=== PATIENT | male | born 2000 | race Caucasian/White ===

== ENCOUNTER 2019-01-12 13:45 | Emergency (ER) | payer OTHER ==
--- NOTE | 2019-01-12 15:14 | EDM.PDOC ---
ED HPI GENERAL MEDICAL PROBLEM - General Chief Complaint: Upper Extremity Injury/Pain Stated Complaint: R SHOULDER INJURY, DURING BASKETBAL Time Seen by Provider: 01/12/19 13:59 Source of Information: Reports: Patient Right Shoulder Pain Score (Numeric/FACES): 7 Past Medical History - Past Surgical History Musculoskeletal Surgical History: Reports: Other (See Below) Other Musculoskeletal Surgeries/Procedures:: ankle surgery Social & Family History - Family History Family Medical History: Noncontributory - Tobacco Use Smoking Status *Q: Never Smoker Second Hand Smoke Exposure: No - Caffeine Use Caffeine Use: Reports: Soda - Recreational Drug Use Recreational Drug Use: No Review of Systems - Review of Systems Review Of Systems: See Below ED EXAM, GENERAL - Physical Exam Exam: See Below Course - Vital Signs Last Recorded V/S: Last Vital Signs Temp 98.0 F 01/12/19 13:56 Pulse 71 01/12/19 13:56 Resp 12 01/12/19 13:56 BP 132/65 01/12/19 13:56 Pulse Ox 99 01/12/19 13:56 - Re-Assessments/Exams Free Text/Narrative Re-Assessment/Exam: 01/13/19 09:24 Initial hx and exam was done by JESSENIA Chaney student. I have also examined patient. I agree with hx and exam as documented. X rays of shoulder are neg for fx., discharge instr. as documented. Departure - Departure Time of Disposition: 15:12 Disposition: Home, Self-Care 01 Condition: Fair Clinical Impression: Sprain of shoulder, right Qualifiers: Encounter type: initial encounter Shoulder sprain type: unspecified sprain Qualified Code(s): S43.401A - Unspecified sprain of right shoulder joint, initial encounter - Discharge Information Instructions: Shoulder Sprain Referrals: PCP,Not In Area [Primary Care Provider] - Forms: ED Department Discharge Additional Instructions: Rest right arm and shoulder, right arm sling but not for more than 5-7 days, Naprosyn 500 mg twice daily for 1 week, you may take Tylenol in addition up to 3 times daily for extra pain relief if needed. Follow-up clinic if not much better and if not getting back towards normal within 7-10 days as expected, call [phone] as needed for appointment. Return to ED as needed.
--- NOTE | 2019-01-12 15:15 | EDM.PDOC ---
<Amanda Chiang - Last Filed: 01/12/19 15:10> ED HPI GENERAL MEDICAL PROBLEM - General Chief Complaint: Upper Extremity Injury/Pain Stated Complaint: R SHOULDER INJURY, DURING BASKETBAL Time Seen by Provider: 01/12/19 13:59 Source of Information: Reports: Patient History Limitations: Reports: No Limitations - History of Present Illness INITIAL COMMENTS - FREE TEXT/NARRATIVE: Patient is a pleasant 18 year old male that presents to the ED with complaints of right shoulder pain that has been present for the past 3 days. He reports the pain started after he dunked the ball while playing basketball. He denies hitting the shoulder or any recent trauma. He describes the pain as throbbing ache with a sharp stab with movement. At rest he rates the pain as a 6/10. He states he has tried taken Tylenol and ibuprofen without much relief. Onset Date: 01/10/19 Duration: Day(s): Location: Reports: Upper Extremity, Right (Shoulder) Quality: Reports: Ache, Sharp, Throbbing Severity: Moderate Improves with: Reports: Rest Worsens with: Reports: Movement Associated Symptoms: Reports: No Other Symptoms Right Shoulder Pain Score (Numeric/FACES): 7 Past Medical History - Past Surgical History Musculoskeletal Surgical History: Reports: Other (See Below) Other Musculoskeletal Surgeries/Procedures:: ankle surgery Social & Family History - Family History Family Medical History: Noncontributory - Tobacco Use Smoking Status *Q: Never Smoker Second Hand Smoke Exposure: No - Caffeine Use Caffeine Use: Reports: Soda - Recreational Drug Use Recreational Drug Use: No Review of Systems - Review of Systems Review Of Systems: See Below Constitutional: Reports: No Symptoms Respiratory: Reports: No Symptoms Cardiovascular: Reports: No Symptoms Musculoskeletal: Reports: Shoulder Pain (Right) Skin: Reports: No Symptoms ED EXAM, GENERAL - Physical Exam Exam: See Below Exam Limited By: No Limitations General Appearance: Alert, No Apparent Distress Respiratory/Chest: No Respiratory Distress, Lungs Clear, Normal Breath Sounds Cardiovascular: Normal Peripheral Pulses, Regular Rate, Rhythm, No Murmur Extremities: Limited Range of Motion (Right shoulder with active ROM- unable to fully abduct arm past horizontal plane. Full passive ROM. ) Neurological: Alert, Oriented, Normal Cognition Psychiatric: Normal Affect, Normal Mood Skin Exam: Warm, Dry, Intact Course - Vital Signs Last Recorded V/S: Last Vital Signs Temp 98.0 F 06/26/19 13:56 Pulse 71 01/12/19 13:56 Resp 12 01/12/19 13:56 BP 132/65 01/12/19 13:56 Pulse Ox 99 01/12/19 13:56 - Orders/Labs/Meds Orders: Active Orders 24 hr Category Date Time Status Shoulder 1V Rt [CR] Stat Exams 01/12/19 14:32 Taken Departure - Departure Disposition: Home, Self-Care 01 Clinical Impression: Sprain of shoulder, right Qualifiers: Encounter type: initial encounter Shoulder sprain type: unspecified sprain Qualified Code(s): S43.401A - Unspecified sprain of right shoulder joint, initial encounter - Discharge Information Instructions: Shoulder Sprain Referrals: PCP,Not In Area [Primary Care Provider] - Forms: ED Department Discharge Additional Instructions: Rest right arm and shoulder, right arm sling but not for more than 5-7 days, Naprosyn 500 mg twice daily for 1 week, you may take Tylenol in addition up to 3 times daily for extra pain relief if needed. Follow-up clinic if not much better and if not getting back towards normal within 7-10 days as expected, call [phone] as needed for appointment. Return to ED as needed. - My Orders Last 24 Hours: My Active Orders 01/12/19 14:32 Shoulder 1V Rt [CR] Stat - Assessment/Plan Last 24 Hours: My Active Orders 01/12/19 14:32 Shoulder 1V Rt [CR] Stat <Leopoldo Maradiaga - Last Filed: 01/12/19 15:31> Review of Systems - Review of Systems Musculoskeletal: Reports: Arm Pain. Denies: Back Pain Neurological: Denies: Numbness, Tingling ED EXAM, GENERAL - Physical Exam Head: Atraumatic Neck: Supple Departure - Departure Time of Disposition: 15:20
--- NOTE | 2019-01-13 08:18 | CR ---
Right shoulder: Single AP view of the right shoulder was obtained. Comparison: No previous study. Glenohumeral joint and acromioclavicular joint appears within normal limits. No fracture or other abnormality is seen. Impression: 1. No abnormality is identified on single AP right shoulder exam. Diagnostic code #1
== END 2019-01-12 15:28 | disposition home or self-care (01) ==
LOC: JD.ED 13:45
DX: S43.401A Unspecified sprain of right shoulder joint, initial encounter (principal); W21.05XA Struck by basketball, initial encounter; Y93.67 Activity, basketball
CPT/HCPCS: 73020-26-RT; 73020-RT; 99283-25